=== PATIENT | female | born 2000 | race Caucasian/White ===

== ENCOUNTER 2018-06-15 15:46 | Inpatient (IN) | payer BC, SELFPAY ==
[2018-06-15 16:06] LABS: Bilirubin Negative (Negative); Blood, Urine Negative (Negative); Clarity CLOUDY (Clear); Glucose, Urine (Dipstick) Negative (Negative); Leukocyte Small (Negative); Nitrite Negative (Negative); Protein, Urine (Dipstick) Trace mg/dL (Neg-Trace); Specific Gravity, Urine 1.025 (1.002-1.036); pH, Urine 7.5 (5.0-9.0)
[2018-06-15 16:08] LABS: Bacteria/HPF 1+ HPF (None Seen); Hyaline Casts/LPF 4-6 HYALINE CAST LPF (0-3 Hyaline); Pathc Cast-AUWi Flag 1.45 (0-2.49); Pregnancy Test - Urine (BHCG) Negative (Negative); Pregu Control Background? CLEAR/WHITE (CLR/WHITE); Pregu Control Bar Appear? YES (CONTROL BAR); Specific Gravity 1.025 (1.002-1.036)
[2018-06-15 16:10] LABS: Renal Epithelial None Seen HPF (0-3); Transitional Epithelial NONE SEEN HPF (0-3)
[2018-06-15 16:16] LABS: Cocaine Metabolite Screen Not Detected (NotDetected); Medtox Reader # READER 1; Phencyclidine (PCP) Not Detected (NotDetected); THC/Cannabinoid Screen Not Detected (NotDetected)
[2018-06-15 16:17] LABS: Amphetamine Not Detected (NotDetected); Barbiturates Screen Not Detected (NotDetected); Benzodiazepine Screen Not Detected (NotDetected); Medtox Control Line Valid? VALID (VALID); Methadone Not Detected (NotDetected); Methamphetamine Detected (NotDetected); Opiate Screen Not Detected (NotDetected); Oxycodone Screen Not Detected (NotDetected); Tricyclic Screen Not Detected (NotDetected)
[2018-06-15 16:23] LABS: Hemoglobin 15.4 g/dL (12.0-16.0); Mean Corpuscular Volume 88.3 fL (78.0-98.0); RBC Distribution Width 11.6 % (11.5-14.5); Red Blood Cell (RBC) Count 5.14 mill/uL (4.00-5.20); White Blood Cell (WBC) Count 11.2 thou/uL (4.8-10.8)
[2018-06-15 16:40] LABS: Alcohol Less than 10 mg/dL (Less than 10); Salicylate Less than 8.0 mg/dL (15.0-30.0)
[2018-06-15 16:42] LABS: ALT (SGPT) 14 U/L (8-55); AST (SGOT) 19 U/L (5-30); Albumin 4.6 g/dL (3.5-5.0); Alkaline Phosphatase 78 U/L (40-150); Anion Gap 14 mmol/L (10-20); BUN (Urea Nitrogen) 8 mg/dL (8.4-21.0); Bilirubin, Total 0.6 mg/dL (0.2-1.2); CK (CPK) 160 U/L (29-168); Calc. Creatinine Clearance 0 mL/min (70-130); Calcium 9.7 mg/dL (7.8-10.44); Carbon Dioxide 18 mmol/L (22-29); Chloride 109 mmol/L (98-107); Estimated GFR-MDRD 70; Globulin 3.3 g/dL (2.4-3.5); Glucose 95 mg/dL (70-105); Potassium 3.5 mmol/L (3.5-5.1); Protein, Total 7.9 g/dL (6.0-8.3); Sodium 137 mmol/L (136-145)
[2018-06-15 16:43] LABS: Band 2 % (5-11); Lymphocytes 30 % (28-48); MDiff Complete? YES; Mean Platelet Volume 7.5 fL (7.4-10.4); Monocytes 6 % (0-4); Neutrophil 62 % (31-61); PLT Morphology Comment Appears Adequate; Platelet Count 239 thou/uL (130-400)
[2018-06-15] MEDS ORDERED: Ondansetron HCl/PF 4 MG/2 ML Vial ONE ×2 (17:21→19:43)
[2018-06-15] MEDS ORDERED: Nitrofurantoin Monohyd/M-Cryst 100 MG CAP PO SCH (18:00)
[2018-06-15] MEDS ORDERED: Sodium Bicarb 50 MEQ/50 ML Abboject 8.4% SYRINGE ONE ×2 (18:21→20:00)
[2018-06-15] MEDS ORDERED: Adacel (T-DAP) 0.5 ML VIAL ONE (18:30)
[2018-06-15] MEDS ORDERED: SODIUM CHLORIDE 0.45% IV SCH (19:45)
[2018-06-15] MEDS ORDERED: SODIUM BICARBONATE IV SCH (19:45)
[2018-06-15] MEDS ORDERED: Ondansetron ODT 4 MG TAB ONE (19:48)
[2018-06-15] MEDS ORDERED: Bacitracin Zinc 1 Packet ONE ×2 (20:50→20:51)
[2018-06-15] MEDS ORDERED: Ondansetron ODT 4 MG TAB SL PRN (22:01)
[2018-06-15] MEDS ORDERED: Ondansetron HCl/PF 4 MG/2 ML Vial IVP PRN (22:01)
[2018-06-15] MEDS ORDERED: Acetaminophen 325 MG TAB PO PRN (22:01)
[2018-06-15 23:03] VITALS: BMI 25.2
[2018-06-16] MEDS ORDERED: Sodium Chloride 0.9% 1,000 ML IV SCH (01:00)
[2018-06-16] MEDS: SODIUM CHLORIDE 0.45% IV SCH ×2 (01:42→08:40)
[2018-06-16] MEDS: SODIUM BICARBONATE IV SCH ×2 (01:42→08:40)
[2018-06-16 04:58] LABS: #Basophils 0.1 thou/uL (0.0-0.2); #Eosinphils 0.3 thou/uL (0.0-0.7); #Lymphocytes 3.7 thou/uL (1.20-3.40); #Monocytes 0.9 thou/uL (0.11-0.59); %Basophils 0.5 % (0.0-1.0); %Eosinophils 2.8 % (0.0-10.0); %Lymphocytes 33.8 % (28.0-48.0); %Monocytes 8.2 % (0.0-4.0); %Neutrophils 54.7 % (31.0-61.0); Hemoglobin 13.2 g/dL (12.0-16.0); Mean Corpuscular HGB CONC 33.4 g/dL (32.0-36.0); Mean Corpuscular Hemoglobin 29.2 pg (25.0-35.0); Mean Corpuscular Volume 87.6 fL (78.0-98.0); Mean Platelet Volume 7.4 fL (7.4-10.4); Platelet Count 316 thou/uL (130-400); RBC Distribution Width 11.5 % (11.5-14.5); Red Blood Cell (RBC) Count 4.51 mill/uL (4.00-5.20); White Blood Cell (WBC) Count 10.9 thou/uL (4.8-10.8)
[2018-06-16 05:21] LABS: Anion Gap 11 mmol/L (10-20); BUN (Urea Nitrogen) 11 mg/dL (8.4-21.0); Calc. Creatinine Clearance 132 mL/min (70-130); Calcium 8.9 mg/dL (7.8-10.44); Carbon Dioxide 22 mmol/L (22-29); Chloride 109 mmol/L (98-107); Estimated GFR-MDRD 87; Glucose 89 mg/dL (70-105); Potassium 3.6 mmol/L (3.5-5.1); Sodium 138 mmol/L (136-145)
[2018-06-16] MEDS: cefTRIAXone\\ROCEPHIN 1 GM in Sodium Chloride 0.9% 100 ML IVPB SCH (11:28)
[2018-06-17] MEDS ORDERED: Eucerin (Mineral Oil/Petrolatum,White) 30 gm Jar TOP PRN (07:42)
[2018-06-17] MEDS ORDERED: Senokot 8.6 MG TAB PO PRN (07:42)
[2018-06-17] MEDS ORDERED: Diabetic Tussin 200 MG/10 ML UDCUP PO PRN (07:42)
[2018-06-17] MEDS ORDERED: Temazepam 15 MG CAP PO PRN (07:42)
[2018-06-17] MEDS ORDERED: hydrALAZINE 20 MG/ML VIAL SLOW IVP PRN (07:42)
[2018-06-17] MEDS ORDERED: Acetaminophen 325 MG TAB PO PRN (07:42)
[2018-06-17] MEDS ORDERED: Metoclopramide HCl 10 MG/2 ML VIAL IVP PRN (07:42)
[2018-06-17] MEDS ORDERED: Sodium Chloride 0.65% Nasal 44 ML BOT EA NARE PRN (07:42)
[2018-06-17] MEDS ORDERED: Calcium Carbonate 500 MG ChewTAB PO PRN (07:42)
[2018-06-17] MEDS ORDERED: Chloraseptic Spray 180 ml Bottle PO PRN (07:42)
[2018-06-17] MEDS ORDERED: Famotidine 20 MG TAB PO PRN (07:42)
[2018-06-17] MEDS ORDERED: Milk Of Magnesia 30 ML UDCUP PO PRN (07:42)
[2018-06-17] MEDS ORDERED: Loperamide HCl 2 MG CAP PO PRN (07:42)
[2018-06-17] MEDS ORDERED: Artificial Tears 18 DROP/0.9 ML EA EYE PRN (07:42)
[2018-06-17] MEDS: cefTRIAXone\\ROCEPHIN 1 GM in Sodium Chloride 0.9% 100 ML IVPB SCH (10:52)
[2018-06-17 11:17] VITALS: BP 121/80; TEMP 97.9
--- NOTE | 2018-06-17 12:45 | HP ---
PRIMARY CARE PHYSICIAN: No PCP. TIME OF EVALUATION: 12:20. CODE STATUS: FULL CODE. CHIEF COMPLAINT: Suicidal attempt. HISTORY OF PRESENT ILLNESS: This is a 17-year-old female patient. Patient has past medical history of depression, came to the hospital after having an intentional suicidal attempt after taking Zoloft 10 to 12 pills and a half a bottle of Nyquil taking orally. The symptoms were related to depression, she reported she had too many problems going on at this point that she was unable to ambulate, no al leviating factors, the patient was seen at bedside. She is still depressed, still suicidal, symptoms started 1 hour prior to arrival, symptoms were severe. REVIEW OF SYSTEMS: Constitutional: No fever or chills. Generalized weakness. Respiratory: No cou gh, sputum production or shortness of breath. Cardiovascular: No chest pain, palpitation. Gastroin testinal: No nausea, no vomiting, diarrhea or abdominal pain. 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 Genitourinary: No burning on urination. Extremities: No leg swelling. Psychiatri c: The patient is depressed, suicidal attempt. All other systems were reviewed and negative except for the findings mentioned above. PAST MEDICAL HISTORY: Negative. PAST SURGICAL HISTORY: No surgical history. PSYCHIATRIC HISTORY: Patient's psych history includes anxiety, depression, and OCD. SOCIAL HISTORY: The patient drinks socially rarely. She denies any drug use. Patient smokes half a pack per day. ALLERGIES: No known drug allergies. REPORTED MEDICATIONS: None. PHYSICAL EXAMINATION: VITAL SIGNS: On presentation, blood pressure 160/86 with heart rate 108, respiratory rate was 18, te mperature 98.8, pain was 5/10, oxygen saturation was 97 on room air. GENERAL APPEARANCE: Patient is alert, oriented, not in any acute distress. HEENT: Eyes, normal conjunctivae, moist oral mucosa, anicteric. NECK: No JVD. RESPIRATORY: Bilateral air entry. No rales, no wheezes, symmetric expansion. CARDIOVASCULAR: Normal rate, regular rhythm. No murmurs, no gallops, no edema. ABDOMEN: Soft, normal bowel sounds. MUSCULOSKELETAL: Baseline range of motion and strength. No tenderness. SKIN: Warm and intact. No pallor, no rash, no redness. Peripheral pulses are present. Capillary r efill distally intact. NEUROLOGIC: No evidence of any new focal weakness. Baseline speech. Cranial nerve seems to be inta ct. PSYCHIATRIC: The patient is depressed, still suicidal. EKG was reviewed. The patient has normal sinus rhythm with a rate of 99, biatrial enlargement and pr olonged QT. Occasional sinus arrhythmia. LABORATORY DATA: Reviewed. White count 11.2, hemoglobin 15.4, MCV 88, platelet count 239. Chemistr y: Sodium 137, potassium 3.5, chloride 109, carbon dioxide was 18, anion gap 14, BUN 8, creatinine 1 .0, GFR 70, glucose 95, calcium 9.7, total bilirubin 0.6. LFTs were negative. TSH 1. Urine was don e and was positive with a white count 11-20. Urine toxicology was positive for methamphetamines. Ac etaminophen level was 9. ASSESSMENT AND PLAN: The patient will be placed in the hospital with following medical problems. 1. Suicidal attempt with Nyquil, Zoloft, Poison Control has been called, given prolongation of QT. The patient has been given bicarbonate, we will continue to monitor on tele. We will follow with Poi son Control recommendation. The patient is still suicidal, we will need psych to see her in the morn ing. Continue with , family has been seen at the bedside. The patient's aunt is going to take her home after patient is clinically stable for discharge. She has reported that she has a very poor relationship with her parents and aunt is going to take her this time. 2. Asymptomatic pyuria, patient denies any urinary symptoms. The patient has a positive urine. We will not give any medications for now. We will do urine culture. 3. Deep venous thrombosis prophylaxis. The patient ambulated. 4. History of depression. The patient has been on Zoloft, was not taking medication recently. As p er patient's aunt, this medication was not worked for her in the past.
--- NOTE | 2018-06-17 14:37 | DIS ---
PRIMARY CARE PHYSICIAN: 06/15/2018 DATE OF DISCHARGE: 06/17/2018 PRIMARY CARE PHYSICIAN: [facility] call admission. DISCHARGE DISPOSITION: Home with safety plan. PRIMARY DISCHARGE DIAGNOSES: Intentional drug overdose; suicidal ideation, resolved; methamphetamine abuse; asymptomatic urinary tract infection. SECONDARY DISCHARGE DIAGNOSES: Anxiety and depression, tobacco abuse disorder. PRIMARY PROCEDURE/OPERATION: None. RADIOLOGICAL INVESTIGATION: None. SIGNIFICANT LABORATORY DATA: WBC 10.9, hemoglobin 13.2, platelet 316. Sodium 138, potassium 3.6, BU N 11, creatinine 0.84. LFT normal. TSH 1.08. Urinalysis suggestive of UTI. test negativ e. Urine drug screen positive for methamphetamine. Serum drug screen negative. Urine culture negat chito. DISCHARGE MEDICATIONS: Macrobid 100 mg p.o. b.i.d. for 5 days. CONTRAINDICATIONS: None. CODE STATUS: FULL CODE. INPATIENT CONSULTANTS: [facility]. TEST RESULTS PENDING ON DISCHARGE: None. ALLERGIES: No known drug allergy. DISCHARGE PLAN: Post hospital, the patient will follow up with primary care physician and psychiatri . HOSPITAL COURSE: A 17-year-old female who has above-mentioned medical problem who was admitted by Dr Kevin Reynolds yesterday. Please see his H&P today for further details. This patient was admitted for i ntentional drug overdose. She took several Zoloft pill, as well as half bottle of Nyquil. She had a problem good QT interval on EKG. This thing she did this for suicidal attempt because she was in lo t of stress. Subsequently, we observed this patient on telemetry floor. We monitored her EKG. Her QT interval was improving. This patient was no longer suicidal and she was feeling more cheerful by the time of discharge. The patient was medically stable and we consulted [facility] and [facility] cleared her to go home with a safety plan. I spoke with the patient and other family member who were present at bedside about safety plan as well and they are all comfortable to go home with a safety plan. Her urinalysis was suggestive o f asymptomatic UTI and that is why she was given Rocephin and on discharge we provided Macrobid. The patient was given IV fluid while in hospital. The patient is seen and examined at bedside today. All review of system reviewed with her and negative. PHYSICAL EXAMINATION: VITAL SIGNS: Currently, temperature 97.9, pulse 71, respiratory rate 18, saturation 97% on room air, blood pressure 129/69, weight 171 pounds. GENERAL: The patient is currently alert, oriented, no acute distress. HEAD: Normocephalic, atraumatic. EYES: Pupils round, reactive to light. Extraocular muscle intact. ENT: Oropharynx within normal limits. Moist mucous membranes, no oral lesion, no pharyngeal erythem a, no exudate. NECK: Supple, no JVD, no thyromegaly, no carotid bruit. LUNGS: Clear. CARDIAC: S1, S2 regular without any murmur. ABDOMEN: Soft and benign. EXTREMITIES: No edema. NEUROLOGIC: Nonfocal examination.
--- NOTE | 2018-06-18 09:36 | EKG ---
Test Reason : Blood Pressure : / mmHG Vent. Rate : 061 BPM Atrial Rate : 061 BPM P-R Int : 152 ms QRS Dur : 086 ms QT Int : 436 ms P-R-T Axes : 048 079 047 degrees QTc Int : 438 ms Sinus rhythm with marked sinus arrhythmia Otherwise normal ECG When compared with ECG of 15-JUN-2018 19:15, (Unconfirmed) QT has shortened Confirmed by SHEILA LOPEZ ([id number]) on 06/18/2018 9:36:29 AM Referred By: RINA Confirmed By:SHEILA LOPEZ
== END 2018-06-17 14:14 | disposition home or self-care (01) | DRG 918 ==
LOC: ERS 15:46 → ERHOLD 18:15 → 2SE 22:04
PROVIDERS: ADMIT Internal Medicine; ATTEND Internal Medicine
DX: T43.222A Poisoning by selective serotonin reuptake inhibitors, intentional self-harm, initial encounter (principal); N39.0 Urinary tract infection, site not specified; T48.5X1A Poisoning by other anti-common-cold drugs, accidental (unintentional), initial encounter; F32.9 Major depressive disorder, single episode, unspecified; F41.9 Anxiety disorder, unspecified; F42.9 Obsessive-compulsive disorder, unspecified; F15.10 Other stimulant abuse, uncomplicated
CPT/HCPCS: 36415; 80048; 80053; 80306; 80307; 81003; 81015; 81025; 82550; 84443; 85025; 87086; 90471; 90686; 90715; 90732; 93005; 93010; 96365; 96374; 96375; 96376; G0008; G0009; J0696; J2405; J7050; Q0162